=== PATIENT | female | born 1985 | race Caucasian/White ===

== ENCOUNTER 2022-04-20 01:13 | Emergency (ER) | payer MEDICAID ==
[~2022-04-20] VITALS: Ht 157.5 cm; Wt 64.1 kg
[2022-04-20] MEDS ORDERED: KETOROLAC 60MG/2ML VIAL IM ONE (05:15)
[2022-04-20] MEDS ORDERED: ACETAMINOPHEN 325MG TABLET PO ONE (05:15)
[2022-04-20] MEDS ORDERED: T3 PO (05:18)
[2022-04-20] MEDS ORDERED: IBUP-2028 PO (05:18)
[2022-04-20 05:58] VITALS: BP 125/65
== END 2022-04-20 05:30 | disposition home or self-care (01) ==
LOC: ER 01:26
DX: G89.29 Other chronic pain (principal); M54.9 Dorsalgia, unspecified; Z98.890 Other specified postprocedural states
CPT/HCPCS: 81025; 96372; 99283; J1885